=== PATIENT | female | born 1955 | race Caucasian/White ===

== ENCOUNTER 2017-05-23 08:22 | Outpatient (CLI) | payer BC ==
[2017-05-23 09:26] LABS: Estimated GFR-MDRD - POC Greater than 90
[2017-05-23 10:10] LABS: ALT (SGPT) 31 U/L (8-55); AST (SGOT) 18 U/L (5-34); Albumin 4.4 g/dL (3.5-5.0); Alkaline Phosphatase 52 U/L (40-150); BUN (Urea Nitrogen) 12 mg/dL (9.8-20.1); Bilirubin, Direct 0.2 mg/dL (0.1-0.3); Bilirubin, Total 0.5 mg/dL (0.2-1.2); Calc. Creatinine Clearance 0 mL/min (70-130); Estimated GFR-MDRD 85
[2017-05-23 10:28] LABS: Hep C IgG Ab Non-Reactive (NonReactive); Hep C Index 0.13 S/CO (0-0.79)
--- NOTE | 2017-05-23 10:37 | CT ---
CT ABDOMEN WITH CONTRAST: DATE: 05-23-17 HISTORY: 62-year year old female with diagnosis of liver lesion on out of town facility imaging study. No further information available. COMPARISON: None available. TECHNIQUE: Patient was premedicated for history of allergy to iodinated contrast. IV injection of iodinated contrast media: 100 mL of Isovue 370. Oral contrast media: Redicat2. A sigle venous phase scan was performed from lung bases to iliac crests (pelvis was not included). With the given history, this should have been performed as a multiphase CT of the abdomen with and wi thout contrast, using liver mass protocol. Unfortunately, the new applied technologist was not aware of t his policy, and performed the study as ordered, as this was only approved by insurance as a with cont rast only scan. Dr. Kyle Weinstein of radiology spoke to the lead technologist, Almaz, about this, stating that the patient should not be charged for this exam because it was not performed correctly. FINDINGS: At the far inferior aspect of the right lobe of the liver, in either hepatic segment 5 or 6, there is a small, faint, approximately 2 x 1 cm lesion with a slightly hyperdense, irregular periphery, and a slightly lower density center. Unfortunately, without precontrast and other phases of post contrast images, this cannot be further characterized, and it cannot be determined whether this is benign or malignant. There are cholecystectomy clips. The kidneys, abdominal aorta, pancreas, adrenals, appendix, and spl een, are normal. Very large number of diverticula throughout entire colon. Fat stranding at junction between sigmoid and descending colon. No small bowel dilation. No free fluid identified. There are 6 [id number]-krledoz lumbar type vertebrae. For the purposes of this report, the last lumbar- type vertebra will be somewhat arbitrarily be designated as L6. There is a heterogeneously hypodense 2 x 2 x 1.5 cm lesion at the right side of the L2 vertebral body, without breakthrough of adjacent c ortex. Pedicle screws at L5 and L6 with interbody cage. IMPRESSION: 1. Small lesion at right lobe of liver of indeterminate nature. The evaluation is incomplete an d inadequate. The patient should not be charged for this CT because the wrong type of study was perf ormed (see TECHNIQUE section above). Recommend multiphase CT of abdomen with and without contrast (a gain, with premedication), using liver mass protocol. 2. Intraosseous lesion in an upper lumbar vertebra. Hemangioma of bone (venous malformation of bone) vs. metastasis. Further evaluation with either nuclear medicine bone scan or MRI of lumbar spi ne with and without contrast is recommended. 3. Diverticulosis of entire colon. 4. Mild acute diverticulitis at left lower quadrant. 5. Status post lumbar interbody fusion, including hardware, at lower lumbar spine. BALA Mcgovern POS: [facility]
[2017-05-23 11:14] LABS: Hep B Core Total Ab Reactive (NonReactive); Hep B Surf AB Reactive (NonReactive)
[2017-05-23 11:15] LABS: Hep B Core Total Index 7.84 S/CO (0-0.79)
[2017-05-23 11:16] LABS: HBSAB Concentration 14300.63 mIU/mL
[2017-05-23] MEDS ORDERED: Iopamidol 370 76% 100 ML VIAL ONE (14:11)
== END 2017-05-23 08:23 | disposition home or self-care (01) ==
LOC: CT 08:22
PROVIDERS: ATTEND Family Medicine
DX: R16.0 Hepatomegaly, not elsewhere classified (principal); K57.92 Diverticulitis of intestine, part unspecified, without perforation or abscess without bleeding; K57.30 Diverticulosis of large intestine without perforation or abscess without bleeding; K76.9 Liver disease, unspecified; M89.9 Disorder of bone, unspecified; Z98.1 Arthrodesis status
CPT/HCPCS: 36415; 74160; 80076; 84520; 86704; 86706; 86708; 86803

== ENCOUNTER 2017-06-24 10:02 | Outpatient (CLI) | payer BC ==
[2017-06-24] MEDS ORDERED: Gadobenate Dimeglumine 529 MG/1 ML (20ML VIAL) ONE (12:52)
--- NOTE | 2017-06-24 14:35 | MRI ---
PRE AND POST CONTRAST ENHANCED MRI LUMBAR SPINE: HISTORY: Hemangioma (D18.09). Low back pain with a history of multiple falls in the past several weeks. TECHNIQUE: Multiplanar, multisequence pre and post contrast enhanced MRI of the lumbar spine is obtained. RADIOGRAPHIC FINDINGS: There is large intraosseous right L1 hemangioma, with three-dimensional measurements measuring 2.2 x 2.2 x 1.8 cm, occupying much of the right posterior L1 vertebral body. No evidence of a compression fracture is seen. L1-L2: No evidence of disk herniation, spinal stenosis, or neural foraminal narrowing is seen. L2-L3: There is minimal retrolisthesis of L2 on L3. There is mild facet hypertrophy seen. The cent ral canal and neural foramen are patent. There is minimal retrolisthesis of L2 on L3. L3-L4: There is some disk desiccation seen. There is a broad-based disk bulge with bilateral facet and ligamentum flavum hypertrophy. This results in a moderate degree of central and lateral recess L 3-L4 spinal stenosis. There is an annular fissure seen along the posterior aspect of the annulus fib rosis. The neural foramen are patent. L4-L5: There has been previous fusion of the L4-L5 level. Intervertebral disk space hardware is see n at the L4-L5 level. Bilateral facet hypertrophy is seen. Pedicle screws are seen at the L4-L5 lev el. The central canal and neural foramen are patent. L5-S1: The central canal and neural foramen are patent. IMPRESSION: 1. Disk desiccation and broad-based disk bulge with a moderate degree of central and lateral recess stenosis at L3-L4. 2. Surgical changes and effusion of L4-L5. 3. L1 interosseous hemangioma. No evidence of acute fracture seen. POS: [facility]
== END 2017-06-24 10:03 | disposition home or self-care (01) ==
LOC: TBSIIMAG 10:02
PROVIDERS: ATTEND Neurological Surgery
DX: D18.09 Hemangioma of other sites (principal); M51.36 Other intervertebral disc degeneration, lumbar region; M48.061 Spinal stenosis, lumbar region without neurogenic claudication; Z98.890 Other specified postprocedural states
CPT/HCPCS: 72158; 82565; A9579

== ENCOUNTER 2017-07-16 08:05 | Day surgery (SDC) | payer BC ==
[2017-07-15 11:11] VITALS: BMI 37.4
--- NOTE | 2017-07-16 08:30 | HP ---
HISTORY OF PRESENT ILLNESS: Ms. Perez is a very pleasant 62-year-old woman presenting to us for eval uation of incidentally discovered hemangioma of the L2 vertebral body on a CT scan. We evaluated demetri blake with an MRI from [place] and ultimately found a profound L3-L4 central canal stenosis, whi ch fix significant neurogenic claudication symptoms that she has been experiencing for many years now . She in the past has not treated this with any conservative treatment and admits that her symptoms have been rather profound and affects her gait a great deal. She hoped to get this treated definitiv david with surgery if possible. PAST MEDICAL HISTORY: Significant for hypertension, hypothyroidism. MEDICATIONS: Include Evista, levothyroxine, lisinopril, torsemide, potassium, vitamin D, Sudafed, do cusate, ranitidine and ibuprofen. PAST SURGICAL HISTORY: Significant for hysterectomy, spinal fusion, and cholecystectomy. ALLERGIES: Include IODINE, PENICILLIN, DECLOMYCIN, MYCIN, NEOMYCIN PHYSICAL EXAMINATION: The patient is alert and oriented x3. Gait is slowed and antalgic. Lower ext remity motor exam reveals full strength bilaterally in all muscle groups of lower extremities. There is no sensory disturbance that I can discern. ASSESSMENT: Neurogenic claudication and lumbar spinal stenosis. PLAN: Dr. Roth met with the patient, reviewed imaging and advocated for an L3-L4 decompression. He explained to the patient the risks, benefits, and alternatives of the procedure. The patient expres sed understanding and would like to move forward with surgery as discussed. I do believe the patient is mentally competent and capable of making medical decisions for herself. We will move forward thomas francisco as planned. Zhen Bertrand PA-C dictating for Dr. Roth.
[2017-07-16] MEDS ORDERED: Fentanyl 250 MCG/5 ML VIAL ONE ×3 (08:32→11:59)
[2017-07-16] MEDS ORDERED: Levofloxacin 500 mg/D5W 100 ml Premix Bag ONE (08:47)
[2017-07-16] MEDS ORDERED: Clindamycin/D5W 900 mg/50 ml Premix Bag ONE (08:47)
[2017-07-16] MEDS ORDERED: Thrombin 5000 UNITS/5 ML VIAL ONE (09:36)
[2017-07-16] MEDS ORDERED: Bupivacaine HCl 0.5%/Epinephrine 1:200,000/PF 30 ml Vial ONE (09:36)
[2017-07-16 09:52] LABS: Anion Gap 11 mmol/L (10-20); BUN (Urea Nitrogen) 11 mg/dL (9.8-20.1); Calc. Creatinine Clearance 139 mL/min (70-130); Carbon Dioxide 29 mmol/L (22-29); Chloride 105 mmol/L (98-107); Estimated GFR-MDRD 90; Glucose 81 mg/dL (70-105); Potassium 3.9 mmol/L (3.5-5.1); Sodium 141 mmol/L (136-145)
--- NOTE | 2017-07-16 09:58 | PRG ---
DATE OF SERVICE: 07/16/2017 Ms. De Dios is a 62-year-old female known to our clinic in practice for an outpatient evaluation for lum bar stenosis with neurogenic claudication. She has had a prior lumbar fusion performed elsewhere and has now developed adjacent segment disease. She had met with Pratik Bertrand in the outpatient clinic w here surgery was discussed. I subsequently had a phone call with her to discuss her diagnosis maria guadalupe g and surgical plan. I met with her in person this morning to do the same. I met with her and her f [facility] members. I answered all of her questions. I reviewed with her again the imaging, the diagnosi s, the surgical plan, and the anticipated recovery. I feel as though she understands the operation a nd she did provide for informed consent.
[2017-07-16] MEDS ORDERED: Midazolam HCl 2 mg/2 ml Vial ONE (10:03)
--- NOTE | 2017-07-16 12:29 | OP ---
DATE OF PROCEDURE: 07/16/2017 SURGEON: Shaheen Roth M.D. LEGAL MANAGER: Ismael Bertrand PA-C. INDICATION: Pain. DIAGNOSIS: Adjacent level lumbar stenosis. PROCEDURE: Reoperation L3-L4 lumbar decompression. ANESTHESIA: General. TECHNIQUE: The patient was brought into the operating room and placed under general anesthesia. She was flipped from a supine to a prone position on the operating room table. The upper aspect of her prior lumbar incision was identified, prepped and draped in usual sterile fashion. Following an appr opriate operative pause, the incision was created. The soft tissues were swept away from midline. A fter dissecting through scar and identifying the patient's prior surgical defect, a C-arm image was o btained to confirm the appropriate level. High-speed cutting drill bit as well as 2, 3 and 4 mm Quezada isons were used to perform a laminectomy at the segment just above her old fusion site. After decomp ressing the central canal and lateral recesses, the wound was irrigated. Hemostasis was maintained t hroughout. The wound was then closed in anatomic layers and a pressure dressing was applied. There were no known procedural complications.
[2017-07-16] MEDS ORDERED: Acetaminophen/Codeine 30-300mg Tablet ONE (13:26)
[2017-07-16] MEDS ORDERED: Propofol 200 MG/20 ML VIAL ONE (15:40)
[2017-07-16] MEDS ORDERED: PHENYLEPHRINE-NS 100 MCG/ML 10 ML SYRINGE ONE (15:40)
[2017-07-16] MEDS ORDERED: Lidocaine 1% PF 5 ML VIAL ONE (15:40)
[2017-07-16] MEDS ORDERED: Ondansetron HCl/PF 4 MG/2 ML Vial ONE (15:40)
[2017-07-16] MEDS ORDERED: Glycopyrrolate 0.2 MG/ML 5 ML SYRINGE ONE (15:40)
--- NOTE | 2017-07-16 20:25 | EKG ---
Test Reason : PREOP Blood Pressure : / mmHG Vent. Rate : 064 BPM Atrial Rate : 064 BPM P-R Int : 164 ms QRS Dur : 096 ms QT Int : 428 ms P-R-T Axes : 063 -03 040 degrees QTc Int : 441 ms Normal sinus rhythm Normal ECG No previous ECGs available Confirmed by COLUMBA JUAN, DR. Hannah ([id number]) on 07/16/2017 8:25:23 PM Referred By: EDVIN Confirmed By:DR. Brielle WATERMAN MD
== END 2017-07-16 17:00 | disposition home or self-care (01) ==
LOC: SDC 08:05
PROVIDERS: ATTEND Neurological Surgery
PROC: 01NB0ZZ Release Lumbar Nerve, Open Approach (ICD-10-PCS; principal; 2017-07-16)
DX: M48.061 Spinal stenosis, lumbar region without neurogenic claudication (principal); I10 Essential (primary) hypertension; E03.9 Hypothyroidism, unspecified; J45.909 Unspecified asthma, uncomplicated; K59.00 Constipation, unspecified; Z79.899 Other long term (current) drug therapy; Z88.0 Allergy status to penicillin; Z88.1 Allergy status to other antibiotic agents; Z91.041 Radiographic dye allergy status; Z98.1 Arthrodesis status; Z87.891 Personal history of nicotine dependence
CPT/HCPCS: 76001; 80048; 93005; 93010; 96374; J0131; J0670; J1956; J2001; J2250; J2405; J2704; J3010; J3490

== ENCOUNTER 2019-03-18 10:04 | Outpatient (CLI) | payer BC ==
--- NOTE | 2019-03-18 11:13 | MMO ---
Bilateral MAMMO Bilat Screen [facility]. CLINICAL HISTORY: Patient is 64 years old and is seen for screening. The patient has the following family history of breast cancer: mother, at age 50. The patient has no personal history of cancer. VIEWS: The views performed were: bilateral craniocaudal with tomosynthesis and bilateral mediolateral oblique with tomosynthesis. FILMS COMPARED: The present examination has been compared to prior imaging studies performed at [facility] on 04/30/2010, and at [facility] on 10/25/2015. This study has been interpreted with the assistance of computer-aided detection. MAMMOGRAM FINDINGS: There are scattered fibroglandular densities. There are stable benign appearing calcifications seen in both breasts. There are no suspicious masses, suspicious calcifications, or new areas of architectural distortion. IMPRESSION: THERE IS NO MAMMOGRAPHIC EVIDENCE OF MALIGNANCY. A ROUTINE FOLLOW-UP MAMMOGRAM IN 1 YEAR IS RECOMMENDED. THE RESULTS OF THIS EXAM WERE SENT TO THE PATIENT. ACR BI-RADS Category 2 - Benign finding MAMMOGRAPHY NOTE: 1. A negative mammogram report should not delay a biopsy if a dominant of clinically suspicious mass is present. 2. Approximately 10% to 15% of breast cancers are not detected by mammography. 3. Adenosis and dense breasts may obscure an underlying neoplasm. Reported by: ANGÉLICA GASPAR MD Electonically Signed: [id number]
== END 2019-03-18 10:05 | disposition home or self-care (01) ==
LOC: BICMAMMO 10:04
PROVIDERS: ATTEND Family Medicine
DX: Z12.31 Encounter for screening mammogram for malignant neoplasm of breast (principal); Z80.3 Family history of malignant neoplasm of breast
CPT/HCPCS: 77063; 77067

== ENCOUNTER 2021-03-07 10:27 | Outpatient (CLI) | payer BC | END 2021-03-07 10:28 | disposition home or self-care (01) | LOC: BICMAMMO 10:27 | PROVIDERS: ATTEND Family Medicine | DX: Z12.31 Encounter for screening mammogram for malignant neoplasm of breast (principal); Z80.3 Family history of malignant neoplasm of breast | CPT/HCPCS: 77063; 77067 ==